=== PATIENT | female | born 1980 | race Hispanic/Latino ===

== ENCOUNTER 2021-10-08 18:48 | Emergency (ER) | payer BC ==
[2021-10-08] MEDS ORDERED: Bupivacaine PF 0.5% 30 ML VIAL SC SCH (20:15)
== END 2021-10-08 21:50 | disposition home or self-care (01) ==
LOC: ERS 18:48
DX: L02.511 Cutaneous abscess of right hand (principal); Z86.73 Personal history of transient ischemic attack (TIA), and cerebral infarction without residual deficits
CPT/HCPCS: 26010; S0020